=== PATIENT | male | born 1985 | race Caucasian/White ===

== ENCOUNTER 2024-04-02 15:11 | Emergency (ER) | payer OTHER ==
[~2024-04-02] VITALS: Ht 170.1 cm; Wt 102.1 kg
[2024-04-02] MEDS ORDERED: FLUONAZOLE150 M1 PO (15:47)
== END 2024-04-02 15:56 | disposition home or self-care (01) ==
LOC: ED 15:11
DX: B37.2 Candidiasis of skin and nail (principal); Z88.8 Allergy status to other drugs, medicaments and biological substances